=== PATIENT | female | born 2000 | race Caucasian/White ===

== ENCOUNTER → 2018-12-25 | Outpatient (CLI) | payer OTHER ==
[~2018-12-25] MED LIST: ANTIVERT/2525 M1 PO; AUGMENTIN 500 M1 TAB PO; [UNRECOGNIZED DRUG - REMARK]
== END | disposition home or self-care (01) ==
LOC: US 10:25
DX: E01.0 Iodine-deficiency related diffuse (endemic) goiter (principal); L65.9 Nonscarring hair loss, unspecified; R53.83 Other fatigue

== ENCOUNTER → 2020-11-17 | Outpatient (CLI) | payer OTHER ==
[2020-11-18 08:08] LABS: HEPATITIS B SURFACE AB Non Reactive (.)
[2020-11-18 16:08] LABS: MUMPS ANTIBODIES, IGG 32.9 AU/mL (Immune >10.9); RUBEOLA AB IGG 44.4 AU/mL (Immune >16.4); VARICELLA-ZOSTER IGG 472 index (Immune >165)
== END | disposition home or self-care (01) ==
LOC: LAB 10:15
PROVIDERS: ATTEND Nurse Practitioner Family
DX: Z01.84 Encounter for antibody response examination (principal); Z11.1 Encounter for screening for respiratory tuberculosis

== ENCOUNTER → 2021-01-19 | Outpatient (CLI) | payer OTHER | END | disposition home or self-care (01) | LOC: LAB 14:17 | PROVIDERS: ATTEND Nurse Practitioner Family | DX: Z01.84 Encounter for antibody response examination (principal) ==